=== PATIENT | male | born 1955 | race Hispanic/Latino ===

== ENCOUNTER 2021-01-19 08:19 | Inpatient (IN) | payer MEDICARE ==
[2021-01-19] VITALS (14 sets, daily range): BP systolic 130–160; BP diastolic 53–94
[~2021-01-19] VITALS: Ht 165.1 cm; Wt 97.5 kg
[2021-01-19] MEDS ORDERED: HYDROMORPHONE 1 MG INJ ONE ×2 (08:53→12:52)
[2021-01-19 08:58] LABS: APPEARANCE,URINE Cloudy (CLEAR); BILIRUBIN,URINE Negative (NEGATIVE); COLOR,URINE Yellow (YELLOW); GLUCOSE, URINE (UA) Negative (NEGATIVE); KETONES,URINE Trace mg/dL (NEGATIVE); LEUKOCYTE ESTERASE ,URINE Moderate (NEGATIVE); NITRATE,URINE Negative (NEGATIVE); OCCULT BLOOD,URINE Large (NEGATIVE); PROTEIN,URINE POS 1+ mg/dL (NEGATIVE); UROBILINOGEN,URINE 0.2 mg/dL (0.2-1.0)
[2021-01-19 09:25] LABS: BASOPHILS % (AUTO) 0.4 % (0.0-5.0); EOSINOPHILS % (AUTO) 0.9 % (0.0-8.0); LYMPHOCYTES % (AUTO) 7.6 % (21.0-51.0); MEAN CORPUSCULAR HEMOGLOBIN 28.8 pg (27.0-33.0); MEAN CORPUSCULAR VOLUME 87.2 fL (79-99); MONOCYTES % (AUTO) 7.5 % (3.0-13.0); NEUTROPHILS % (AUTO) 83.2 % (40.0-77.0); PLATELET COUNT (AUTO) 279 K/uL (130-400); RED BLOOD CELL COUNT(AUTO) 4.93 MIL/uL (4.50-6.20); RED CELL DISTRIBUTION WIDTH 13.5 % (11.0-15.5); WHITE BLOOD COUNT (AUTO) 13.4 K/uL (4.8-10.8)
[2021-01-19 09:36] LABS: ALBUMIN 3.8 g/dL (3.5-5.0); BILIRUBIN,TOTAL 0.4 mg/dL (0.2-1.0); CREATININE 3.8 mg/dL (0.5-1.5); POTASSIUM 4.4 mmol/L (3.5-5.1); TOTAL PROTEIN, SERUM 7.3 g/dL (6.0-8.3)
[2021-01-19 09:48] LABS: BACTERIA,URINE Few /HPF (None Seen); SQUAMOUS EPITHELIAL CELL,UR 0-2 /HPF (0-2)
[2021-01-19] MEDS ORDERED: DILTIAZEM 60MG TAB PO SCH (11:00)
[2021-01-19] MEDS ORDERED: ONDANSETRON 4MG INJ ONE (16:05)
[2021-01-19] MEDS ORDERED: HYDROCODONE/ACETAMINOPHEN 10/325 MG TAB ONE (16:06)
[2021-01-19] MEDS: 0.9%NACL 1000ML 1,000 ML IV SCH (16:45)
[2021-01-19] MEDS ORDERED: ACETAMINOPHEN 325 MG TAB PO PRN ×2 (16:45→23:45)
[2021-01-19] MEDS ORDERED: HYDROCODONE/ACETAMINOPHEN 10/325 MG TAB PO PRN (16:45)
[2021-01-19] MEDS ORDERED: MORPHINE 4 MG SYG IV PRN (16:45)
[2021-01-19] MEDS ORDERED: LEVOFLOXACIN 500 MG/D5W 100 ML 100 ML IV SCH (16:45)
[2021-01-19] MEDS ORDERED: DEXTROSE 50%-WATER 50 ML DISP.SYRIN IV PRN (16:45)
[2021-01-19] MEDS ORDERED: GLUCAGON 1MG KIT 1 MG ML IM PRN (16:45)
[2021-01-19] MEDS ORDERED: HYDROMORPHONE 4MG/ML 1ML VIAL IVP PRN (16:45)
[2021-01-19] MEDS ORDERED: ONDANSETRON 4MG INJ IVP PRN ×2 (16:45→23:45)
[2021-01-19] MEDS: LEVOFLOXACIN 500 MG/D5W 100 ML 100 ML IV SCH (17:00)
[2021-01-19] MEDS ORDERED: HYDROMORPHONE 1 MG INJ IVP PRN (17:00)
[2021-01-19] MEDS ORDERED: LEVOFLOXACIN 500 MG/D5W 100 ML 100 ML ONE (17:23)
[2021-01-19] MEDS ORDERED: 0.9%NACL 1000ML 1,000 ML IV ONE (17:24)
[2021-01-19] MEDS ORDERED: MORPHINE 4 MG SYG ONE (18:26)
[2021-01-19 18:31] LABS: INR 0.98 (0.85-1.15); PROTHROMBIN TIME 10.7 SEC (9.6-11.6)
[2021-01-19 18:32] LABS: PARTIAL THROMBOPLASTIN TIME 25.5 SEC (26.3-35.5)
[2021-01-19] MEDS ORDERED: LIDOCAINE HCL 2% PF 20 ML JEL DISP.SYRIN MM ONE (19:14)
[2021-01-19] MEDS ORDERED: KETAMINE 50MG/ML SYRINGE 50 MG/ML DISP.SYRIN IV ONE (19:17)
[2021-01-19] MEDS ORDERED: PROPOFOL 10 MG/ML 20ML VIAL IV ONE ×2 (19:17→19:48)
[2021-01-19] MEDS ORDERED: FENTANYL CITRATE PF 50 MCG/1 ML 2ML VIAL ONE ×2 (19:17→19:42)
[2021-01-19] MEDS ORDERED: MIDAZOLAM HCL 1 MG/ML 2ML VIAL ONE (19:17)
[2021-01-19] MEDS ORDERED: MEPERIDINE-PF 25 MG/ML SYG ONE ×2 (20:30→20:34)
[2021-01-19] MEDS: INSULIN HUMULIN R 100 UNIT/ML 3ML SQ SCH (21:00)
[2021-01-19] MEDS: METOPROLOL TARTRATE 25 MG TAB PO SCH ×2 (21:00→22:01)
[2021-01-19] MEDS ORDERED: ACETAMINOPHEN WITH CODEINE 1 TAB TAB ONE (21:56)
[2021-01-19] MEDS: FAMOTIDINE 20MG VIAL IV SCH (22:02)
[2021-01-19] MEDS ORDERED: APIX5TAB PO (22:27)
[2021-01-19] MEDS ORDERED: DILT30 PO (22:27)
[2021-01-19] MEDS ORDERED: TRAM100T40 PO (22:27)
[2021-01-19] MEDS ORDERED: OXYBUTYNIN 5 MG TAB.SR.24H PO PRN (23:45)
[2021-01-19] MEDS ORDERED: ACETAMINOPHEN WITH CODEINE 1 TAB TAB PO PRN (23:45)
[2021-01-20] VITALS (7 sets, daily range): BP systolic 123–170; BP diastolic 77–97
[2021-01-20] MEDS: MEPERIDINE-PF 75 MG/ML SYG IM PRN ×2 (04:28→21:38)
[2021-01-20] MEDS: 0.9%NACL 1000ML 1,000 ML IV SCH ×2 (04:29→14:11)
[2021-01-20] MEDS: INSULIN HUMULIN R 100 UNIT/ML 3ML SQ SCH ×4 (05:26→21:00)
[2021-01-20 05:52] LABS: BASOPHILS % (AUTO) 0.4 % (0.0-5.0); EOSINOPHILS % (AUTO) 0.6 % (0.0-8.0); HEMATOCRIT 37.7 % (42-54); MEAN CORPUSCULAR HEMOGLOBIN 28.4 pg (27.0-33.0); MEAN CORPUSCULAR HGB CONC 32.4 g/dL (32.0-36.0); MEAN CORPUSCULAR VOLUME 87.7 fL (79-99); MONOCYTES % (AUTO) 11.3 % (3.0-13.0); NEUTROPHILS % (AUTO) 75.3 % (40.0-77.0); PLATELET COUNT (AUTO) 214 K/uL (130-400); RED CELL DISTRIBUTION WIDTH 13.7 % (11.0-15.5); WHITE BLOOD COUNT (AUTO) 11.2 K/uL (4.8-10.8)
[2021-01-20 06:03] LABS: ALBUMIN 2.8 g/dL (3.5-5.0); BILIRUBIN,TOTAL 0.5 mg/dL (0.2-1.0); CREATININE 3.9 mg/dL (0.5-1.5); POTASSIUM 4.6 mmol/L (3.5-5.1); TOTAL PROTEIN, SERUM 6.2 g/dL (6.0-8.3)
[2021-01-20] MEDS: TRAMADOL HCL 50 MG TABLET PO SCH (08:23)
[2021-01-20] MEDS: METOPROLOL TARTRATE 25 MG TAB PO SCH ×2 (08:23→21:17)
[2021-01-20] MEDS: DILTIAZEM 60MG TAB PO SCH ×3 (08:23→21:17)
[2021-01-20] MEDS ORDERED: OXYBUTYNIN 5 MG TAB.SR.24H PO ONE (21:11)
[2021-01-20] MEDS ORDERED: OXYBUTYNIN 5 MG TAB.SR.24H PO SCH (21:15)
[2021-01-20] MEDS: FAMOTIDINE 20MG VIAL IV SCH (21:17)
[2021-01-21] VITALS (7 sets, daily range): BP systolic 120–155; BP diastolic 70–91
[2021-01-21] MEDS: 0.9%NACL 1000ML 1,000 ML IV SCH ×3 (00:29→20:29)
[2021-01-21 05:20] LABS: BASOPHILS % (AUTO) 0.6 % (0.0-5.0); EOSINOPHILS % (AUTO) 1.6 % (0.0-8.0); HEMATOCRIT 39.8 % (42-54); MEAN CORPUSCULAR HEMOGLOBIN 28.6 pg (27.0-33.0); MEAN CORPUSCULAR HGB CONC 32.7 g/dL (32.0-36.0); MEAN CORPUSCULAR VOLUME 87.7 fL (79-99); MONOCYTES % (AUTO) 8.7 % (3.0-13.0); NEUTROPHILS % (AUTO) 75.7 % (40.0-77.0); PLATELET COUNT (AUTO) 217 K/uL (130-400); RED BLOOD CELL COUNT(AUTO) 4.54 MIL/uL (4.50-6.20); RED CELL DISTRIBUTION WIDTH 13.7 % (11.0-15.5); WHITE BLOOD COUNT (AUTO) 11.7 K/uL (4.8-10.8)
[2021-01-21 05:38] LABS: PHOSPHORUS 3.6 mg/dL (2.5-4.9); POTASSIUM 4.2 mmol/L (3.5-5.1)
[2021-01-21] MEDS: INSULIN HUMULIN R 100 UNIT/ML 3ML SQ SCH ×4 (06:25→19:48)
[2021-01-21] MEDS ORDERED: APIXABAN 5 MG TABLET PO SCH (09:00)
[2021-01-21] MEDS: DILTIAZEM 60MG TAB PO SCH ×3 (10:04→20:43)
[2021-01-21] MEDS: METOPROLOL TARTRATE 25 MG TAB PO SCH ×2 (10:05→20:43)
[2021-01-21] MEDS: TRAMADOL HCL 50 MG TABLET PO SCH (10:05)
[2021-01-21] MEDS: OXYBUTYNIN CHLORIDE 5 MG TABLET PO SCH ×2 (12:15→20:44)
[2021-01-21] MEDS: LEVOFLOXACIN 500 MG/D5W 100 ML 100 ML IV SCH (17:08)
[2021-01-21] MEDS: FAMOTIDINE 20MG VIAL IV SCH (20:45)
[2021-01-21] MEDS: MEPERIDINE-PF 75 MG/ML SYG IM PRN (21:39)
[2021-01-22] MEDS: 0.9%NACL 1000ML 1,000 ML IV SCH ×2 (03:19→16:29)
[2021-01-22 04:00] VITALS: BP 130/74
[2021-01-22 05:47] LABS: BASOPHILS % (AUTO) 0.7 % (0.0-5.0); EOSINOPHILS % (AUTO) 4.4 % (0.0-8.0); HEMATOCRIT 38.7 % (42-54); LYMPHOCYTES % (AUTO) 18.1 % (21.0-51.0); MEAN CORPUSCULAR HEMOGLOBIN 28.3 pg (27.0-33.0); MEAN CORPUSCULAR HGB CONC 31.8 g/dL (32.0-36.0); MONOCYTES % (AUTO) 9.4 % (3.0-13.0); NEUTROPHILS % (AUTO) 66.8 % (40.0-77.0); PLATELET COUNT (AUTO) 214 K/uL (130-400); RED BLOOD CELL COUNT(AUTO) 4.35 MIL/uL (4.50-6.20); RED CELL DISTRIBUTION WIDTH 13.7 % (11.0-15.5); WHITE BLOOD COUNT (AUTO) 8.7 K/uL (4.8-10.8)
[2021-01-22 06:15] LABS: CREATININE 2.7 mg/dL (0.5-1.5); POTASSIUM 4.1 mmol/L (3.5-5.1)
[2021-01-22] MEDS: INSULIN HUMULIN R 100 UNIT/ML 3ML SQ SCH ×2 (06:21→11:30)
[2021-01-22 08:29] VITALS: BP 134/87
[2021-01-22] MEDS: TRAMADOL HCL 50 MG TABLET PO SCH (09:00)
[2021-01-22] MEDS: METOPROLOL TARTRATE 25 MG TAB PO SCH (10:11)
[2021-01-22] MEDS: DILTIAZEM 60MG TAB PO SCH ×2 (10:11→14:00)
[2021-01-22] MEDS: OXYBUTYNIN CHLORIDE 5 MG TABLET PO SCH (10:12)
[2021-01-22 11:53] VITALS: BP 145/95
[2021-01-22 16:40] VITALS: BP_SYST 130; BP_SYST 179; BP_DIAS 104; BP_DIAS 89
== END 2021-01-22 18:00 | disposition home or self-care (01) | DRG 660 ==
LOC: EDH 08:19 → EDHIP 16:33 → 3CH 20:28
PROVIDERS: ADMIT Internal Medicine; ATTEND Internal Medicine
PROC: BT141ZZ Fluoroscopy of Kidneys, Ureters and Bladder using Low Osmolar Contrast (ICD-10-PCS; 2021-01-19)
PROC: 0TCB8ZZ Extirpation of Matter from Bladder, Via Natural or Artificial Opening Endoscopic (ICD-10-PCS; 2021-01-19)
PROC: 0T748DZ Dilation of Left Kidney Pelvis with Intraluminal Device, Via Natural or Artificial Opening Endoscopic (ICD-10-PCS; principal; 2021-01-19 19:44)
PROC: 0T738DZ Dilation of Right Kidney Pelvis with Intraluminal Device, Via Natural or Artificial Opening Endoscopic (ICD-10-PCS; 2021-01-19 19:44)
DX: N13.6 Pyonephrosis (principal); I48.20 Chronic atrial fibrillation, unspecified; N17.9 Acute kidney failure, unspecified; E11.65 Type 2 diabetes mellitus with hyperglycemia; N40.0 Benign prostatic hyperplasia without lower urinary tract symptoms; J45.909 Unspecified asthma, uncomplicated; I10 Essential (primary) hypertension; I25.10 Atherosclerotic heart disease of native coronary artery without angina pectoris; E86.9 Volume depletion, unspecified; N21.0 Calculus in bladder; N32.89 Other specified disorders of bladder; Z95.5 Presence of coronary angioplasty implant and graft; Z87.442 Personal history of urinary calculi; Z79.01 Long term (current) use of anticoagulants; Z88.6 Allergy status to analgesic agent; Z88.0 Allergy status to penicillin
CPT/HCPCS: 36415; 74176; 74420; 76770; 80048; 80053; 81001; 82360; 82948; 83690; 84100; 85025; 85610; 85730; 87071; 87088; 87205; 93005; A4344; A4606; C1758; C1769; C2617; G0378; J1170; J1815; J1956; J2175; J2250; J2270; J2405; J2704; J3010; J3490; J7030

== ENCOUNTER → 2021-06-23 | Outpatient (CLI) | payer MEDICARE ==
[~2021-06-23] MED LIST: DILT30 PO; TRAM100T40 PO
== END | disposition home or self-care (01) ==
LOC: RAH 09:22
PROVIDERS: ATTEND Urology
DX: N20.0 Calculus of kidney (principal)
CPT/HCPCS: 74018; 76100

== ENCOUNTER → 2025-01-30 | Outpatient (CLI) | payer MEDICARE ==
--- NOTE | 2025-01-31 08:23 | HMCSR ---
APPROVED REPORT EXAM: Two-dimensional and M-mode echocardiogram with Doppler and color Doppler. INDICATION ICD: Shortness of breath R06.02 Atrial Fibrillation 2D Dimensions RVDd4.1 cmLVEF(%)54.6 (>50%)LVED Vol(simp.)163.0 mL IVSd1.1 (0.7-1.1cm)FS(%)29 %LVES Vol(simp.)76.0 mL LVDd5.3 (3.8-5.6cm)LA (2D)4.5 (1.6-4.0cm)LVEF(%, simp.)53 % PWd1.1 (0.7-1.1cm)Ao Root(2D)3.3 (2.0-3.7cm)LA ESV INDEX (BP)72.66 mL/m2 LVDs3.8 (2.5-4.0cm)LVOT diam2.2 (1.8-2.4cm) IVC diam1.9 cm Aortic Valve AoV Vmax1.8 m/Abel Peak GR12.7 mmHgLVOT Vmax1.1 m/s AoV VTI0.4 mAo Mean GR7.0 mmHgLVOT VTI0.27 m DEANN (VMAX)2.5 cm2AVA (VTI) 2.5 cm2 Mitral Valve MV E Yeha062.3 cm/sP 1/2 T55 ms MR Max PG152 mmHgMVA (PHT)4.0 cm2 Pulmonary Valve PV Vmax1.0 m/sPV VTI0.22 mPV Mean GR3 mmHg PV Peak GR4.1 mmHg Tricuspid Valve TR Vmax3.1 m/sRAP (EST) 8 sgTrFXUQ11.2 mmHg TR Peak GR38.2 mmHg Left Ventricle Left ventricular cavity size is normal. There is normal LV segmental wall motion. There is borderline to mild concentric left ventricular hypertrophy. LVEF is 50-55%. Indeterminate diastolic dysfunction . Right Ventricle The right ventricle is normal size. The right ventricular systolic function is normal. Atria The left atrium is small. The right atrium is dilated. Aortic Valve Aortic valve is trileaflet. Aortic valve leaflets are sclerotic but open well. No aortic regurgitatio n is present. There is no aortic valvular stenosis. Mitral Valve Mitral valve leaflets are sclerotic but open well. Mitral regurgitation is mild to moderate. There is no mitral valve stenosis. Tricuspid Valve The tricuspid valve leaflets appear normal. There is trace tricuspid regurgitation. Right ventricular systolic pressure is estimated at 40-50 mmHg. Pulmonic Valve Pulmonic valve is not well visualized. There is no pulmonic valvular regurgitation. Great Vessels The aortic root is normal in size. IVC is dilated and collapses >50% with inspiration. Pericardium No pericardial effusion. Conclusion LVEF is 50-55%. Mitral regurgitation is mild to moderate. There is trace tricuspid regurgitation. Right ventricular systolic pressure is estimated at 40-50 mmHg.
== END | disposition home or self-care (01) ==
LOC: SHCH 08:03
PROVIDERS: ATTEND Internal Medicine Cardiovascular Disease
DX: I08.0 Rheumatic disorders of both mitral and aortic valves (principal); R06.02 Shortness of breath; I25.10 Atherosclerotic heart disease of native coronary artery without angina pectoris
CPT/HCPCS: 93306

== ENCOUNTER → 2025-02-22 | Outpatient (CLI) | payer MEDICARE ==
[~2025-02-22] MED LIST changes: -TRAM100T40 PO; +TRAM100T56 PO
--- NOTE | 2025-02-22 17:10 | HMCSR ---
APPROVED REPORT Height: 5 ft 11in Weight: 194 lbs TEST INDICATIONS Shortness of Breath The imaging protocol used to acquire images was Rest Tc-99m/stress Tc-99m 1 day Consent: The procedure was explained and understood by the patient. Informerd consent was witnessed Adan Ibarra RN First, low dose rest was performed then high dose stress. RESTING DATA: The resting ekg shows: NSR, Atrial Fibrillation Rest SPECT myocardial perfusion imaging was performed in supine position 67 minutes following the int ravenous injection of 10.6 mCi of Tc-99 Sestamibi. Time of rest injection: 08:11: Date: 02/22/2025 Time of rest imagin:18: Date: 02/22/2025 PHARMACOLOGIC STRESS: Pharmacologic stress test was performed by injecting regadenoson 0.4 mg IV push followed by the intra venous injection of 32.2 mCi of Tc-99 Sestamibi. Time of stress injection: 09:45: Date: 02/22/2025 Time of stress imagin:02: Date: 02/22/2025 Heart Rate at time of stress injection: 64 bpm. Gated Stress SPECT was performed 77 minutes after stress injection. The images were gated to evaluate regional wall motion and calculate left ventricular ejection fracti on. STRESS DETAILS Reason for Termination: Infusion complete Stress Symptoms: Flushing Max HR Achieved: 80 bpm % of APMHR Achieved: 52 Max Blood Pressure: 164/52 mmHg Stress ECG: Atrial Fibrillation Conclusion No ischemia No infarct Diaphragm attenuation artifact Normal LV wall motion Dilated LV at rest and stress No increased lung uptake LV ejection fraction 60% There is a 10-15% chance that myocardial ischemia is missed on this exam.
[2025-02-23] MEDS: REGADENOSON 0.4 MG/5 ML PF SYG IVP ONE (10:55)
== END | disposition home or self-care (01) ==
LOC: SHCH 07:39
PROVIDERS: ATTEND Internal Medicine Cardiovascular Disease
DX: I25.10 Atherosclerotic heart disease of native coronary artery without angina pectoris (principal); R06.02 Shortness of breath; R23.2 Flushing; I48.91 Unspecified atrial fibrillation
CPT/HCPCS: 78452; 93017; J2785; A9500 ×2